=== PATIENT | male | born 1955 | race Caucasian/White ===

== ENCOUNTER 2022-09-22 10:34 | Observation (INO) | payer MEDICARE ==
[2022-09-22] VITALS (17 sets, daily range): BP systolic 106–147; BP diastolic 61–89
[~2022-09-22] VITALS: Ht 172.7 cm; Wt 134.7 kg
[2022-09-22] MEDS ORDERED: NITROGLYCERIN 0.4 MG SUBL SL ONE (11:00)
[2022-09-22] MEDS ORDERED: ASPIRIN 81 MG CHEW TAB PO ONE ×2 (11:00→12:00)
[2022-09-22 11:11] LABS: BASOPHILS # (AUTO) 0.1 (0.0-0.1); BASOPHILS % 0.8 % (0.0-1.0); EOSINOPHILS # (AUTO) 0.4 (0.0-0.4); EOSINOPHILS % 4.4 % (0.0-6.0); HEMOGLOBIN 16.1 g/dL (14.0-18.0); LYMPHOCYTES # (AUTO) 2.3 (1.0-3.2); LYMPHOCYTES % 27.1 % (18.0-39.1); MEAN CORPUSCULAR HGB CONC 32.9 g/dL (31-35); MEAN CORPUSCULAR VOLUME 88.1 fL (81-99); MONOCYTES # (AUTO) 0.3 (0.2-0.8); MONOCYTES % 3.1 % (4.4-11.3); NEUTROPHILS # (AUTO) 5.4 (2.1-6.9); NEUTROPHILS % 64.1 % (38.7-80.0); PLATELET COUNT 256 x10e3/uL (140-360); RED BLOOD COUNT 5.56 x10e6/uL (4.3-5.7); RED CELL DISTRIBUTION WIDTH 13.2 % (11.7-14.4)
[2022-09-22 11:19] LABS: ANION GAP 15.9 mmol/L (8-16); CALCIUM 8.9 mg/dL (8.4-10.2); CREATININE, SERUM 1.02 mg/dL (0.72-1.25); POTASSIUM 3.9 mmol/L (3.5-5.1)
[2022-09-22 11:26] LABS: CREATINE KINASE MB 1.6 ng/mL (0-5.0)
[2022-09-22] MEDS ORDERED: NITROGLYCERIN 2% OINT 1 GM PKT TOP ONE (11:45)
[2022-09-22] MEDS ORDERED: SODIUM CHLORIDE FLUSH 10 ML SYR INJ PRN (12:00)
[2022-09-22] MEDS ORDERED: HEPARIN SOD/SOD CHLORIDE 2,000 ML ONE (12:07)
[2022-09-22] MEDS ORDERED: IOPAMIDOL 370 MG/ML 100 ML INFUS..BTL INJ ONE ×2 (12:07→12:51)
[2022-09-22] MEDS ORDERED: NITROGLYCERIN/D5W 200 MCG/ML 250 ML ONE (12:07)
[2022-09-22] MEDS ORDERED: HEPARIN SOD (PORCINE) 1000 UNIT/ML 30ML ONE (12:07)
[2022-09-22] MEDS ORDERED: LIDOCAINE HCL 2% LOCAL 20 ML VIAL ONE (12:07)
[2022-09-22] MEDS ORDERED: SODIUM CHLORIDE 0.9% 1000ML 1,000 ML ONE (12:07)
[2022-09-22] MEDS ORDERED: CLOPIDOGREL BISULFATE 75 MG TAB ONE (12:12)
[2022-09-22] MEDS ORDERED: MIDAZOLAM HCL 2 MG/2 ML VIAL ONE (12:20)
[2022-09-22] MEDS ORDERED: FENTANYL CITRATE/PF 100MCG/2 ML INJ ONE (12:20)
[2022-09-22] MEDS ORDERED: TYLENOL325 MG PO (17:59)
[2022-09-22] MEDS ORDERED: ASPIRIN81 MG PO (17:59)
[2022-09-22] MEDS ORDERED: ACETAMINOPHEN 325 MG TAB PO PRN (18:00)
[2022-09-22] MEDS ORDERED: ONDANSETRON HCL INJ 2MG/ML 2ML 2 MG/ML VIAL IV PRN (18:00)
[2022-09-22] MEDS ORDERED: CLONIDINE HCL 0.1 MG TAB PO PRN (18:00)
[2022-09-22] MEDS: SODIUM CHLORIDE 0.9% 1000ML 1,000 ML IV SCH (18:38)
[2022-09-22 19:25] LABS: CREATINE KINASE MB 1.3 ng/mL (0-5.0)
[2022-09-22] MEDS ORDERED: ATORVASTATIN 40 MG TAB PO SCH (21:00)
[2022-09-23 00:38] VITALS: BP 136/74
[2022-09-23 04:00] VITALS: BP 117/82
[2022-09-23] MEDS: SODIUM CHLORIDE 0.9% 1000ML 1,000 ML IV SCH (05:36)
[2022-09-23 06:52] LABS: CHOL/HDL RATIO 4.8 (3.9-4.7)
[2022-09-23 06:54] LABS: ALBUMIN 3.5 g/dL (3.5-5.0); ALBUMIN/GLOBULIN RATIO 1.1 (0.8-2.0); ANION GAP 16.4 mmol/L (8-16); CALCIUM 8.9 mg/dL (8.4-10.2); CREATININE, SERUM 0.89 mg/dL (0.72-1.25); POTASSIUM 4.4 mmol/L (3.5-5.1)
[2022-09-23 06:57] LABS: BASOPHILS # (AUTO) 0.1 (0.0-0.1); BASOPHILS % 0.8 % (0.0-1.0); EOSINOPHILS # (AUTO) 0.5 (0.0-0.4); EOSINOPHILS % 4.2 % (0.0-6.0); HEMATOCRIT 46.6 % (38.2-49.6); HEMOGLOBIN 15.1 g/dL (14.0-18.0); LYMPHOCYTES # (AUTO) 2.4 (1.0-3.2); LYMPHOCYTES % 22.5 % (18.0-39.1); MEAN CORPUSCULAR HEMOGLOBIN 28.6 pg (28-32); MEAN CORPUSCULAR HGB CONC 32.4 g/dL (31-35); MEAN CORPUSCULAR VOLUME 88.3 fL (81-99); MONOCYTES # (AUTO) 0.7 (0.2-0.8); NEUTROPHILS # (AUTO) 7.1 (2.1-6.9); PLATELET COUNT 265 x10e3/uL (140-360); RED BLOOD COUNT 5.28 x10e6/uL (4.3-5.7); RED CELL DISTRIBUTION WIDTH 13.2 % (11.7-14.4)
[2022-09-23 07:05] LABS: CREATINE KINASE MB 1.3 ng/mL (0-5.0)
[2022-09-23 08:00] VITALS: BP 146/80
[2022-09-23 08:17] VITALS: BP 146/80
[2022-09-23] MEDS ORDERED: ASPIRIN 81 MG ENTERIC COATED PO SCH ×2 (09:00)
[2022-09-23] MEDS ORDERED: CLOPIDOGREL BISULFATE 75 MG TAB PO SCH (09:00)
[2022-09-23] MEDS ORDERED: METOPROLOL SUCCINATE 25 MG TAB XL PO SCH (09:00)
[2022-09-23] MEDS ORDERED: PLAVIX75 MG PO (10:31)
[2022-09-23] MEDS ORDERED: TOPROL XL25 MG PO (10:31)
[2022-09-23] MEDS ORDERED: ATORVASTATIN CA40 MG PO (10:31)
[2022-09-23 12:35] VITALS: BP 154/93
== END 2022-09-23 12:31 | disposition home or self-care (01) ==
LOC: ER 10:39 → ERHOLD 12:03 → MED/SURG 17:16
PROVIDERS: ADMIT Internal Medicine; ATTEND Internal Medicine
DX: R07.89 Other chest pain (principal); I25.700 Atherosclerosis of coronary artery bypass graft(s), unspecified, with unstable angina pectoris; G47.33 Obstructive sleep apnea (adult) (pediatric); E66.01 Morbid (severe) obesity due to excess calories; Z68.42 Body mass index [BMI] 45.0-49.9, adult; I24.9 Acute ischemic heart disease, unspecified; E78.00 Pure hypercholesterolemia, unspecified; I10 Essential (primary) hypertension; Z95.1 Presence of aortocoronary bypass graft; Z95.5 Presence of coronary angioplasty implant and graft; Z20.822 Contact with and (suspected) exposure to COVID-19
CPT/HCPCS: 0223U; 36415 ×2; 71045; 80048; 80053; 80061; 82550 ×2; 82553 ×2; 83880; 84484 ×2; 85025 ×2; 93005; 93459; 99284; C1760; C1887; G0378 ×2; J2001; J2250; J3010; J7030 ×2; Q9967; 36200; 93458; 99152; 99153; J1644